=== PATIENT | male | born 1980 ===

== ENCOUNTER 2017-07-21 04:12 | Inpatient (IN) | payer MEDICAID ==
--- NOTE | 2017-07-21 04:43 | C.PDOC ---
History Of Present Illness Patient PIETER from home for evaluation. As per EMS, roommate called EMS because he was agitated and difficult to control. He arrives in ED yelling and appears to be under influence of drugs. Time Seen by Provider: 07/21/17 04:14 Chief Complaint (Nursing): Medical Clearance History Per: EMS History/Exam Limitations: clinical condition Onset/Duration Of Symptoms: Unknown Past Medical History Reviewed: Historical Data, Nursing Documentation, Vital Signs Vital Signs: Last Vital Signs Temp 98.1 F 07/21/17 04:19 Pulse 86 07/21/17 06:33 Resp 17 07/21/17 06:33 BP 153/130 H 07/21/17 06:33 Pulse Ox 98 07/21/17 06:51 - Medical History Other PMH: unknown Surgical History: Back Surgery Family History: States: Unknown Family Hx - Social History Hx Alcohol Use: Yes Hx Substance Use: Yes Review Of Systems Review Of Systems: ROS cannot be obtained secondary to pt's inabilty to answer questions. Physical Exam - Physical Exam Appears: Non-toxic, Unkempt, Other (awake, agitated, grunting and yelling periodically ) Skin: Normal Color, Warm, Dry, Other (no diaphoresis) Eye(s): bilateral: Other (approx 5mm and reactive, occasional vertical nystagmus ) Oral Mucosa: Moist Cardiovascular: Rhythm Regular Respiratory: Normal Breath Sounds, No Rales, No Rhonchi, No Wheezing Gastrointestinal/Abdominal: Normal Exam, Bowel Sounds, Soft, No Tenderness Neurological/Psych: Other (occasional clenching/tensing of muscles ) ED Course And Treatment - Laboratory Results Result Diagrams: 07/21/17 06:21 07/21/17 06:21 O2 Sat by Pulse Oximetry: 98 (RA) Pulse Ox Interpretation: Normal Progress Note: UA, UDS, accucheck ordered and reviewed. IM Ativan 2mg given. 5 :50am- Patient's roommate called ED, states patient is addicted to Pecocet, takes Lyrica and dextromethorphan tabs (8 tabs at a time). He is unsure if patient has psychiatric history or not. Recently patient has been having "bad trips" where he is agitated and screaming, causing neighbors to complaint. UDS (+) only for opiates and marijuana. Blood work and CT head ordered. 6:05- Haldol 5mg IM given. Patient agitated, on all fours on stretcher, clenching his leg and butt muscles, clenching his jaw. Code geno called and patient placed in 4 point restraints. 6:35- IV access obtained, patient given IV Benadryl 50mg - for possible dystonia. IV NS bolus ordered. Disposition - Disposition Referrals: Non [facility] Provider, [Primary Care Provider] - Disposition Time: 07:00 Condition: STABLE Forms: [employer] (Turkmen) - Clinical Impression Clinical Impression: Agitation, Substance abuse Physician Patient Turnover Patient Signed Over To: Jorge Vance Handoff Comments: pending CT head, CK, EKG
[2017-07-21 05:27] LABS: SQUAMOUS EPITHIAL < 1 /hpf (0-5); URINE BILIRUBIN NEGATIVE (NEGATIVE); URINE BLOOD NEGATIVE (NEGATIVE); URINE CLARITY Clear (Clear); URINE COLOR Straw (YELLOW); URINE GLUCOSE (UA) NORMAL (Normal); URINE LEUKOCYTE ESTERASE NEG Leu/uL (Negative); URINE NITRATE NEGATIVE (NEGATIVE); URINE PROTEIN NEGATIVE (NEGATIVE); URINE UROBILINOGEN NORMAL mg/dL (0.2-1.0)
[2017-07-21 05:37] LABS: BARBITURATES, UR NEGATIVE (NEGATIVE); BENZODIAZEPINES, UR NEGATIVE (NEGATIVE); PHENCYCLIDINE, UR NEGATIVE (NEGATIVE)
[2017-07-21 05:46] LABS: OPIATES, UR POSITIVE (NEGATIVE)
[2017-07-21 06:26] LABS: BASO # 0.3 K/uL (0.0-0.2); BASO % 1.6 % (0.0-2.0); EOS % 0.1 % (0.0-4.0); HEMOGLOBIN 15.5 g/dL (12.0-18.0); LYMPH % 10.6 % (20.0-40.0); MEAN CORPUSCULAR HEMOGLOBIN 31.9 pg (27.0-31.0); MEAN CORPUSCULAR HGB CONC 33.6 g/dL (33.0-37.0); MEAN PLATELET VOLUME 9.7 fL (7.2-11.7); MONO # 0.7 K/uL (0.0-0.8); MONO % 3.8 % (0.0-10.0); NEUT % 83.9 % (50.0-75.0); RBC 4.85 Mil/uL (4.40-5.90); RED CELL DISTRIBUTION WIDTH 13.2 % (11.5-14.5); WHITE BLOOD COUNT 19.1 K/uL (4.8-10.8)
[2017-07-21] MEDS ORDERED: DiphenhydrAMINE 50 mg/ml Inj ONE (06:39)
[2017-07-21 06:40] LABS: ALB/GLOB RATIO 1.1 (1.0-2.1); ALBUMIN 4.7 g/dL (3.5-5.0); ALT/SGPT 59 U/L (21-72); AST/SGOT 46 U/L (17-59); BLOOD UREA NITROGEN 14 mg/dL (9-20); CALCIUM 9.9 mg/dl (8.6-10.4); GFR AFRICAN-AMERICAN > 60; GFR NON-AFRICAN AMERICAN > 60
[2017-07-21] MEDS ORDERED: Sodium Chloride 0.9% 1,000 ML IV ONE (06:44)
[2017-07-21] MEDS ORDERED: DiphenhydrAMINE 50 mg/ml Inj IVP STA (06:44)
[2017-07-21] MEDS ORDERED: Sodium Chloride 0.9% 1,000 ML ONE (06:47)
[2017-07-21 07:41] LABS: SALICYLATE < 1.0 mg/dL 1
[2017-07-21 07:46] LABS: ACETAMINOPHEN < 10.0 ug/mL (10.0-30.0)
--- NOTE | 2017-07-21 08:31 | CT ---
PROCEDURE: CT HEAD WITHOUT CONTRAST. HISTORY: bizarre behavior, AMS COMPARISON: None available. TECHNIQUE: Axial computed tomography images were obtained through the head/brain without intravenous contrast. Radiation dose: Total exam DLP = 1012.8 mGy-cm. This CT exam was performed using one or more of the following dose reduction techniques: Automated exposure control, adjustment of the mA and/or kV according to patient size, and/or use of iterative reconstruction technique. FINDINGS: HEMORRHAGE: No intracranial hemorrhage. BRAIN: No mass effect or edema. No atrophy or chronic microvascular ischemic changes. Low-lying cerebellar tonsils. VENTRICLES: Unremarkable. No hydrocephalus. CALVARIUM: Prior right frontal craniotomy. PARANASAL SINUSES: Unremarkable as visualized. No significant inflammatory changes. MASTOID AIR CELLS: Unremarkable as visualized. No inflammatory changes. OTHER FINDINGS: None. IMPRESSION: No acute intracranial pathology. Low-lying cerebellar tonsils.
--- NOTE | 2017-07-21 08:42 | RAD ---
HISTORY: confusion COMPARISON: No prior. FINDINGS: LUNGS: No active pulmonary disease. PLEURA: No significant pleural effusion identified, no pneumothorax apparent. CARDIOVASCULAR: Normal. OSSEOUS STRUCTURES: No significant abnormalities. VISUALIZED UPPER ABDOMEN: Normal. OTHER FINDINGS: None. IMPRESSION: Limited evaluation due to patient rotation. No active disease.
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
[2017-07-21] MEDS ORDERED: Sodium Chloride 0.9% 1,000 ML IV SCH (11:45)
--- NOTE | 2017-07-21 12:29 | RAD ---
PROCEDURE: CHEST RADIOGRAPH, 1 VIEW HISTORY: aspiration, black stuff in mouth COMPARISON: Chest radiograph performed approximately 4 hours prior. FINDINGS: LUNGS: Low lung volumes. Clear. PLEURA: No pneumothorax or pleural fluid seen. CARDIOVASCULAR: Normal. OSSEOUS STRUCTURES: No significant abnormalities. VISUALIZED UPPER ABDOMEN: Normal. OTHER FINDINGS: None. IMPRESSION: No active disease.
--- NOTE | 2017-07-21 12:31 | RAD ---
PROCEDURE: Radiographs of the Lumbar Spine. HISTORY: prior back sx and abscess COMPARISON: No prior. FINDINGS: BONES: Normal alignment. No listhesis. No fracture. DISC SPACES: Unremarkable. OTHER FINDINGS: None. IMPRESSION: Unremarkable radiographs of the lumbar spine.
--- NOTE | 2017-07-21 13:16 | CP.PCM.CON ---
History of Present Illness - History of Present Illness History of Present Illness: 37 y/o male with pmx of polysubstance abuse admitted to [facility] [place] after neighbor complained patient was having verbal outburst and was found agitated. Patient stated he smoked marijuana and takes percocet, lyrica and morphine ER from Dr. Ramos (clinic in [place]). Patient was given ativan in Er. Patient was AAO x3, able to move all 4 extremitites. Provided detailed history. Patient denies any chest pain, denie any abdominal pain, denies any headaches, denies any nausea/vomitting. Review of Systems - Constitutional Constitutional: As Per HPI - EENT Eyes: As Per HPI - Cardiovascular Cardiovascular: As Per HPI - Respiratory Respiratory: As Per HPI - Gastrointestinal Gastrointestinal: As Per HPI - Genitourinary Genitourinary: As Per HPI Past Patient History - Infectious Disease Hx of Infectious Diseases: None - Past Medical History & Family History Past Medical History?: Yes Past Family History: Reviewed and not pertinent - Past Social History Smoking Status: Current Some Days Smoker Chewing Tobacco Use: No Cigar Use: No Alcohol: > 2 Drinks/Day Drugs: Cannabis, Opiates Home Situation {Lives}: Other (pt unable to provide full details of living situation. ) - PSYCHIATRIC Hx Substance Use: Yes - ANESTHESIA Hx Anesthesia: Yes Meds Allergies/Adverse Reactions: Allergies Allergy/AdvReac Type Severity Reaction Status Date / Time No Known Allergies Allergy Unverified 07/21/17 09:40 - Medications Medications: Current Medications Lactated Ringer's (Lactated Ringer's) 1,000 mls @ 100 mls/hr IV .Q10H [facility] Pantoprazole Sodium (Protonix Inj) 40 mg IVP DAILY [facility] Physical Exam - Head Exam Head Exam: ATRAUMATIC, NORMAL INSPECTION, NORMOCEPHALIC - Eye Exam Eye Exam: EOMI, Normal appearance - ENT Exam Additional comments: mouth.lips dry - Neck Exam Neck exam: Positive for: Full Rom - Respiratory Exam Respiratory Exam: Clear to Auscultation Bilateral, NORMAL BREATHING PATTERN - Cardiovascular Exam Cardiovascular Exam: REGULAR RHYTHM, +S1, +S2 - GI/Abdominal Exam GI & Abdominal Exam: Normal Bowel Sounds - Exam External exam: NORMAL EXTERNAL EXAM - Back Exam Additional comments: long 13 inch healed scar Results - Vital Signs Recent Vital Signs: Last Vital Signs Temp 98.9 F 07/21/17 07:30 Pulse 76 07/21/17 08:29 Resp 16 07/21/17 08:29 BP 146/99 H 07/21/17 08:29 Pulse Ox 96 07/21/17 08:29 - Labs Result Diagrams: 07/21/17 06:21 07/21/17 06:21 Labs: Laboratory Results - last 24 hr 07/21/17 07/21/17 07/21/17 04:34 05:18 05:18 WBC RBC Hgb Hct MCV MCH MCHC RDW Plt Count MPV Neut % (Auto) Lymph % (Auto) [place] % (Auto) Eos % (Auto) Baso % (Auto) Neut # (Auto) Lymph # (Auto) [place] # (Auto) Eos # (Auto) Baso # (Auto) Sodium Potassium Chloride Carbon Dioxide Anion Gap BUN Creatinine Est GFR ( Amer) Est GFR (Non-Af Amer) POC Glucose (mg/dL) 88 Random Glucose Calcium Total Bilirubin AST ALT Alkaline Phosphatase Ammonia Total Creatine Kinase Total Protein Albumin Globulin Albumin/Globulin Ratio Procalcitonin TSH 3rd Generation Urine Color Straw Urine Clarity Clear Urine pH 5.0 Ur Specific [place] 1.010 Urine Protein Negative Urine Glucose (UA) Normal Urine Ketones Negative Urine Blood Negative Urine Nitrate Negative Urine Bilirubin Negative Urine Urobilinogen Normal Ur Leukocyte Esterase Neg Urine WBC (Auto) < 1 Urine RBC (Auto) < 1 Ur Squamous Epith Cells < 1 Salicylates Urine Opiates Screen Positive H Urine Methadone Screen Negative Acetaminophen Ur Barbiturates Screen Negative Ur Phencyclidine Scrn Negative Ur Amphetamines Screen Negative U Benzodiazepines Scrn Negative U Oth Cocaine Metabols Negative U Cannabinoids Screen Positive H Alcohol, Quantitative 07/21/17 07/21/17 07/21/17 06:21 06:21 07:23 WBC 19.1 H RBC 4.85 Hgb 15.5 Hct 46.1 MCV 95.0 H MCH 31.9 H MCHC 33.6 RDW 13.2 Plt Count 273 MPV 9.7 Neut % (Auto) 83.9 H Lymph % (Auto) 10.6 L [place] % (Auto) 3.8 Eos % (Auto) 0.1 Baso % (Auto) 1.6 Neut # (Auto) 16.0 H Lymph # (Auto) 2.0 [place] # (Auto) 0.7 Eos # (Auto) 0.0 Baso # (Auto) 0.3 H Sodium 145 Potassium 4.4 Chloride 104 Carbon Dioxide 26 Anion Gap 20 BUN 14 Creatinine 1.1 Est GFR ( Amer) > 60 Est GFR (Non-Af Amer) > 60 POC Glucose (mg/dL) Random Glucose 92 Calcium 9.9 Total Bilirubin 1.0 AST 46 ALT 59 Alkaline Phosphatase 125 Ammonia Total Creatine Kinase 606 H Total Protein 9.2 H Albumin 4.7 Globulin 4.5 H Albumin/Globulin Ratio 1.1 Procalcitonin TSH 3rd Generation Urine Color Urine Clarity Urine pH Ur Specific [place] Urine Protein Urine Glucose (UA) Urine Ketones Urine Blood Urine Nitrate Urine Bilirubin Urine Urobilinogen Ur Leukocyte Esterase Urine WBC (Auto) Urine RBC (Auto) Ur Squamous Epith Cells Salicylates < 1.0 Urine Opiates Screen Urine Methadone Screen Acetaminophen < 10.0 L Ur Barbiturates Screen Ur Phencyclidine Scrn Ur Amphetamines Screen U Benzodiazepines Scrn U Oth Cocaine Metabols U Cannabinoids Screen Alcohol, Quantitative < 10 07/21/17 07/21/17 07/21/17 10:15 10:15 10:15 WBC RBC Hgb Hct MCV MCH MCHC RDW Plt Count MPV Neut % (Auto) Lymph % (Auto) [place] % (Auto) Eos % (Auto) Baso % (Auto) Neut # (Auto) Lymph # (Auto) [place] # (Auto) Eos # (Auto) Baso # (Auto) Sodium Potassium Chloride Carbon Dioxide Anion Gap BUN Creatinine Est GFR ( Amer) Est GFR (Non-Af Amer) POC Glucose (mg/dL) Random Glucose Calcium Total Bilirubin AST ALT Alkaline Phosphatase Ammonia 14 Total Creatine Kinase Total Protein Albumin Globulin Albumin/Globulin Ratio Procalcitonin < 0.05 L TSH 3rd Generation 2.73 Urine Color Urine Clarity Urine pH Ur Specific [place] Urine Protein Urine Glucose (UA) Urine Ketones Urine Blood Urine Nitrate Urine Bilirubin Urine Urobilinogen Ur Leukocyte Esterase Urine WBC (Auto) Urine RBC (Auto) Ur Squamous Epith Cells Salicylates Urine Opiates Screen Urine Methadone Screen Acetaminophen Ur Barbiturates Screen Ur Phencyclidine Scrn Ur Amphetamines Screen U Benzodiazepines Scrn U Oth Cocaine Metabols U Cannabinoids Screen Alcohol, Quantitative Assessment & Plan - Assessment and Plan (Free Text) Assessment: Youg patient taking percocet post back surgery. -POlysubstance abuse: Patient advised to stop marijuana use as it can interact with his class II meds and lead to psychosis. -Back Pain: suspect opoid dependent, restart 15 mg ER morphine q12hrs -restart lyrica 300mg q12hrs -Leukocytosis: suspect aspiration, continue empriical zosyn, mercer culture, serial lactic -rhabdo: low level, continue LR at 100 ml/hr -I stop reference #[id number] -Patient denied that he took any sough syrup. -please check tylenol level -check oxycodone urine -continue 1:1 observation -obtain psych eval Patient remains hemodynamically stable., Please call ICU if patient's clinical status worsens. - Date & Time Date: 07/21/17 Time: 13:21
[2017-07-21] MEDS: Lactated Ringer's 1,000 ML IV SCH ×3 (13:44→22:43)
[2017-07-21 13:52] LABS: BASO # 0.1 K/uL (0.0-0.2); BASO % 0.6 % (0.0-2.0); EOS # 0.1 K/uL (0.0-0.7); EOS % 0.7 % (0.0-4.0); HEMOGLOBIN 14.5 g/dL (12.0-18.0); LYMPH # 2.8 K/uL (1.0-4.3); LYMPH % 24.1 % (20.0-40.0); MEAN CORPUSCULAR HEMOGLOBIN 31.8 pg (27.0-31.0); MEAN CORPUSCULAR HGB CONC 33.5 g/dL (33.0-37.0); MEAN PLATELET VOLUME 9.5 fL (7.2-11.7); MONO # 1.1 K/uL (0.0-0.8); MONO % 9.3 % (0.0-10.0); NEUT # 7.7 K/uL (1.8-7.0); NEUT % 65.3 % (50.0-75.0); RBC 4.55 Mil/uL (4.40-5.90); RED CELL DISTRIBUTION WIDTH 13.2 % (11.5-14.5); WHITE BLOOD COUNT 11.8 K/uL (4.8-10.8)
[2017-07-21 15:19] LABS: SQUAMOUS EPITHIAL 5 /hpf (0-5); URINE BACTERIA OCC (<OCC); URINE BILIRUBIN NEGATIVE (NEGATIVE); URINE BLOOD NEGATIVE (NEGATIVE); URINE CLARITY Clear (Clear); URINE GLUCOSE (UA) NORMAL (Normal); URINE LEUKOCYTE ESTERASE 3+ Leu/uL (Negative); URINE NITRATE NEGATIVE (NEGATIVE); URINE PROTEIN NEGATIVE (NEGATIVE); URINE UROBILINOGEN NORMAL mg/dL (0.2-1.0)
[2017-07-21 15:20] LABS: URINE COLOR YELLOW (YELLOW)
[2017-07-21] MEDS: Morphine 15 mg SR Tab PO SCH ×2 (15:27→21:48)
[2017-07-21] MEDS: Piperacillin/Tazobact 3.375 GM in Sodium Chloride 0.9% 100 ML IVPB SCH ×2 (15:35→20:21)
--- NOTE | 2017-07-21 17:09 | CP.PCM.CON ---
History of Present Illness - History of Present Illness History of Present Illness: Mr. Nash is a 37-year-old man with a past medical history of hypertension, and a previous history of spinal abscess that was treated two years ago, who states that he has also had febrile seizure as a child, and does not know why he is in the hospital. He said he is confused about why he is here. The last thing he remembers is the police coming to his house and bringing him to the ED. He did not have any tongue biting, urinary incontinence, or bowel incontinence. He did not hit his head and denied any injury. Labs showed leukocytosis and urine was positive for opiates and cannabis. CT scan of the head was normal. Review of Systems - Review of Systems All systems: reviewed and no additional remarkable complaints except Past Patient History - Infectious Disease Hx of Infectious Diseases: None - Past Medical History & Family History Past Medical History?: Yes Past Family History: Reviewed and not pertinent - Past Social History Smoking Status: Current Some Days Smoker Chewing Tobacco Use: No Cigar Use: No Alcohol: > 2 Drinks/Day Drugs: Cannabis, Opiates Home Situation {Lives}: Other (pt unable to provide full details of living situation. ) - PSYCHIATRIC Hx Substance Use: Yes - ANESTHESIA Hx Anesthesia: Yes Meds Allergies/Adverse Reactions: Allergies Allergy/AdvReac Type Severity Reaction Status Date / Time No Known Allergies Allergy Unverified 07/21/17 09:40 - Medications Medications: Current Medications Lactated Ringer's (Lactated Ringer's) 1,000 mls @ 100 mls/hr IV .Q10H [facility] Last Admin: 07/21/17 13:44 Dose: 100 mls/hr Piperacillin Sod/Tazobactam (Sod 3.375 gm/ Sodium Chloride) 100 mls @ 200 mls/ hr IVPB Q6H [facility] Last Admin: 07/21/17 15:35 Dose: 200 mls/hr Morphine Sulfate (Morphine Extended Release Tab) 15 mg PO Q12 [facility] Last Admin: 07/21/17 15:27 Dose: Not Given Pantoprazole Sodium (Protonix Inj) 40 mg IVP DAILY [facility] Pregabalin (Lyrica) 300 mg PO BID [facility] Physical Exam - Neurological Exam Neurological exam: Alert, CN II-XII Intact, Normal Gait, Oriented x3, Reflexes Normal Results - Vital Signs Recent Vital Signs: Last Vital Signs Temp 98.4 F 07/21/17 15:50 Pulse 79 07/21/17 15:50 Resp 20 07/21/17 15:50 BP 146/75 07/21/17 15:50 Pulse Ox 100 07/21/17 15:50 - Labs Result Diagrams: 07/21/17 13:43 07/21/17 06:21 Labs: Laboratory Results - last 24 hr 07/21/17 07/21/17 07/21/17 04:34 05:18 05:18 WBC RBC Hgb Hct MCV MCH MCHC RDW Plt Count MPV Neut % (Auto) Lymph % (Auto) [place] % (Auto) Eos % (Auto) Baso % (Auto) Neut # (Auto) Lymph # (Auto) [place] # (Auto) Eos # (Auto) Baso # (Auto) ESR Sodium Potassium Chloride Carbon Dioxide Anion Gap BUN Creatinine Est GFR ( Amer) Est GFR (Non-Af Amer) POC Glucose (mg/dL) 88 Random Glucose Calcium Total Bilirubin AST ALT Alkaline Phosphatase Ammonia Total Creatine Kinase C-React Prot High Sens Total Protein Albumin Globulin Albumin/Globulin Ratio Procalcitonin TSH 3rd Generation Urine Color Straw Urine Clarity Clear Urine pH 5.0 Ur Specific [place] 1.010 Urine Protein Negative Urine Glucose (UA) Normal Urine Ketones Negative Urine Blood Negative Urine Nitrate Negative Urine Bilirubin Negative Urine Urobilinogen Normal Ur Leukocyte Esterase Neg Urine WBC (Auto) < 1 Urine RBC (Auto) < 1 Ur Squamous Epith Cells < 1 Urine Bacteria Salicylates Urine Opiates Screen Positive H Urine Methadone Screen Negative Acetaminophen Ur Barbiturates Screen Negative Ur Phencyclidine Scrn Negative Ur Amphetamines Screen Negative U Benzodiazepines Scrn Negative U Oth Cocaine Metabols Negative U Cannabinoids Screen Positive H Alcohol, Quantitative 07/21/17 07/21/17 07/21/17 06:21 06:21 07:23 WBC 19.1 H RBC 4.85 Hgb 15.5 Hct 46.1 MCV 95.0 H MCH 31.9 H MCHC 33.6 RDW 13.2 Plt Count 273 MPV 9.7 Neut % (Auto) 83.9 H Lymph % (Auto) 10.6 L [place] % (Auto) 3.8 Eos % (Auto) 0.1 Baso % (Auto) 1.6 Neut # (Auto) 16.0 H Lymph # (Auto) 2.0 [place] # (Auto) 0.7 Eos # (Auto) 0.0 Baso # (Auto) 0.3 H ESR Sodium 145 Potassium 4.4 Chloride 104 Carbon Dioxide 26 Anion Gap 20 BUN 14 Creatinine 1.1 Est GFR ( Amer) > 60 Est GFR (Non-Af Amer) > 60 POC Glucose (mg/dL) Random Glucose 92 Calcium 9.9 Total Bilirubin 1.0 AST 46 ALT 59 Alkaline Phosphatase 125 Ammonia Total Creatine Kinase 606 H C-React Prot High Sens Total Protein 9.2 H Albumin 4.7 Globulin 4.5 H Albumin/Globulin Ratio 1.1 Procalcitonin TSH 3rd Generation Urine Color Urine Clarity Urine pH Ur Specific [place] Urine Protein Urine Glucose (UA) Urine Ketones Urine Blood Urine Nitrate Urine Bilirubin Urine Urobilinogen Ur Leukocyte Esterase Urine WBC (Auto) Urine RBC (Auto) Ur Squamous Epith Cells Urine Bacteria Salicylates < 1.0 Urine Opiates Screen Urine Methadone Screen Acetaminophen < 10.0 L Ur Barbiturates Screen Ur Phencyclidine Scrn Ur Amphetamines Screen U Benzodiazepines Scrn U Oth Cocaine Metabols U Cannabinoids Screen Alcohol, Quantitative < 10 07/21/17 07/21/17 07/21/17 10:15 10:15 10:15 WBC RBC Hgb Hct MCV MCH MCHC RDW Plt Count MPV Neut % (Auto) Lymph % (Auto) [place] % (Auto) Eos % (Auto) Baso % (Auto) Neut # (Auto) Lymph # (Auto) [place] # (Auto) Eos # (Auto) Baso # (Auto) ESR Sodium Potassium Chloride Carbon Dioxide Anion Gap BUN Creatinine Est GFR ( Amer) Est GFR (Non-Af Amer) POC Glucose (mg/dL) Random Glucose Calcium Total Bilirubin AST ALT Alkaline Phosphatase Ammonia 14 Total Creatine Kinase C-React Prot High Sens Total Protein Albumin Globulin Albumin/Globulin Ratio Procalcitonin < 0.05 L TSH 3rd Generation 2.73 Urine Color Urine Clarity Urine pH Ur Specific [place] Urine Protein Urine Glucose (UA) Urine Ketones Urine Blood Urine Nitrate Urine Bilirubin Urine Urobilinogen Ur Leukocyte Esterase Urine WBC (Auto) Urine RBC (Auto) Ur Squamous Epith Cells Urine Bacteria Salicylates Urine Opiates Screen Urine Methadone Screen Acetaminophen Ur Barbiturates Screen Ur Phencyclidine Scrn Ur Amphetamines Screen U Benzodiazepines Scrn U Oth Cocaine Metabols U Cannabinoids Screen Alcohol, Quantitative 0307/21/17 07/21/17 13:43 13:43 15:05 WBC 11.8 H RBC 4.55 Hgb 14.5 Hct 43.2 MCV 95.0 H MCH 31.8 H MCHC 33.5 RDW 13.2 Plt Count 234 MPV 9.5 Neut % (Auto) 65.3 Lymph % (Auto) 24.1 [place] % (Auto) 9.3 Eos % (Auto) 0.7 Baso % (Auto) 0.6 Neut # (Auto) 7.7 H Lymph # (Auto) 2.8 [place] # (Auto) 1.1 H Eos # (Auto) 0.1 Baso # (Auto) 0.1 ESR 13 Sodium Potassium Chloride Carbon Dioxide Anion Gap BUN Creatinine Est GFR ( Amer) Est GFR (Non-Af Amer) POC Glucose (mg/dL) Random Glucose Calcium Total Bilirubin AST ALT Alkaline Phosphatase Ammonia Total Creatine Kinase C-React Prot High Sens 3.14 H Total Protein Albumin Globulin Albumin/Globulin Ratio Procalcitonin TSH 3rd Generation Urine Color Yellow Urine Clarity Clear Urine pH 5.0 Ur Specific [place] 1.010 Urine Protein Negative Urine Glucose (UA) Normal Urine Ketones Trace Urine Blood Negative Urine Nitrate Negative Urine Bilirubin Negative Urine Urobilinogen Normal Ur Leukocyte Esterase 3+ H Urine WBC (Auto) 14 H Urine RBC (Auto) 1 Ur Squamous Epith Cells 5 Urine Bacteria Occ H Salicylates Urine Opiates Screen Urine Methadone Screen Acetaminophen Ur Barbiturates Screen Ur Phencyclidine Scrn Ur Amphetamines Screen U Benzodiazepines Scrn U Oth Cocaine Metabols U Cannabinoids Screen Alcohol, Quantitative Assessment & Plan (1) Mental status change Assessment and Plan: The patient may have had a seizure, but is not back to baseline. There were no reported convulsions and there is no other evidence of a recent seizure. He states that he had not eaten in a few days and was still taking all of his opiate medications. These may have contributed to his confusion. The patient may have an EEG and an MRI of the brain as an outpatient. His mental status and neurological exam are completely normal. No further recommendations at this time. I recommend treating the underlying medical problems. Please reconsult neurology if there are any other concerns. Thank you. Status: Resolved Priority: Medium
[2017-07-21 20:24] LABS: ABG ALLEN TEST P; ARTERIAL BLOOD GAS HCO3 9.8 mmol/L (21-28); ARTERIAL BLOOD GAS PCO2 8 mm/Hg (35-45); ARTERIAL BLOOD GAS PH 7.29 (7.35-7.45); ARTERIAL BLOOD GAS PO2 165 mm/Hg (80-100)
[2017-07-22] MEDS: Piperacillin/Tazobact 3.375 GM in Sodium Chloride 0.9% 100 ML IVPB SCH ×4 (02:44→20:38)
[2017-07-22] MEDS ORDERED: DiphenhydrAMINE 50 mg/ml Inj IVP STA (03:04)
--- NOTE | 2017-07-22 03:26 | CON ---
DATE: CARDIOLOGY CONSULTATION REQUESTING PHYSICIAN: Dr. Ding. HISTORY OF PRESENT ILLNESS: The patient is a 37-year-old male who has a history of epidural abscess in 2016, underwent surgical drainage which was followed by diminished sensation of both lower extremities. The patient was put in because of agitation. The patient remembers that police went to his apartment and took him from his apartment and put him into the hospital. The patient is taking multiple medications from a [facility] for low back pain. The patient is unaware of any prior cardiac history. SOCIAL HISTORY: The patient is smoker and drinker. 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 MEDICATIONS: The patient does not recall his home medications. He is currently in the hospital on Lactated Ringer's at 100 mL/hour, Lyrica 300 mg once a day, morphine sulfate 50 mg p.o. q. 12 hours, Zosyn 3.375 mg intravenously q. 6 hours, Protonix 40 mg intravenously once a day. PHYSICAL EXAMINATION: GENERAL: The patient is a middle-aged male, who does not appear to be in any distress. VITAL SIGNS: Blood pressure 146/75, heart rate 79, temperature 98.4. Earlier blood pressure was documented at 163/130. HEENT: Normocephalic. CHEST: Clear. HEART: S1 and S2 regular. EXTREMITIES: No edema. LABORATORY DATA: SMA-7 is entirely within normal limits. Total CPK is 606. TSH level is within normal limits. Hemoglobin and hematocrit are 14.5 and 43.2. White count 11.8, platelet count 134,000. Urinary screen is positive for and cannabinoids. EKG revealed normal sinus rhythm . Head CT scan, no acute intracranial findings. Lumbar spine x-ray is unremarkable. Chest x-ray: Poor inspiratory effort, otherwise unremarkable. ASSESSMENT: 1. Altered mental status and sedation on admission. At this time the patient is coherent and cooperative. 2. Cannabinoid abuse. 3. Slightly elevated total creatinine kinase. RECOMMENDATIONS: Continue current IV Zosyn. Admit the patient to Telemetry. Ordered an echocardiogram. The patient's initial hypertension is most likely related to his agitation and treatment will be considered as the patient remains hypertensive despite adequate tranquilizers. Kar Alfaro MD
[2017-07-22 07:53] LABS: BASO % 0.3 % (0.0-2.0); EOS # 0.1 K/uL (0.0-0.7); EOS % 1.2 % (0.0-4.0); HEMOGLOBIN 12.7 g/dL (12.0-18.0); LYMPH # 2.8 K/uL (1.0-4.3); LYMPH % 30.8 % (20.0-40.0); MEAN CELL VOLUME 94.5 fL (80.0-94.0); MEAN CORPUSCULAR HEMOGLOBIN 32.3 pg (27.0-31.0); MEAN CORPUSCULAR HGB CONC 34.2 g/dL (33.0-37.0); MEAN PLATELET VOLUME 10.1 fL (7.2-11.7); MONO # 1.1 K/uL (0.0-0.8); MONO % 12.4 % (0.0-10.0); NEUT % 55.3 % (50.0-75.0); RBC 3.95 Mil/uL (4.40-5.90); RED CELL DISTRIBUTION WIDTH 13.1 % (11.5-14.5)
[2017-07-22 08:22] LABS: ALB/GLOB RATIO 1.2 (1.0-2.1); ALBUMIN 3.5 g/dL (3.5-5.0); ALT/SGPT 40 U/L (21-72); AST/SGOT 28 U/L (17-59); BLOOD UREA NITROGEN 20 mg/dL (9-20); CALCIUM 8.4 mg/dl (8.6-10.4); GFR AFRICAN-AMERICAN > 60; GFR NON-AFRICAN AMERICAN > 60
[2017-07-22] MEDS: Morphine 15 mg SR Tab PO SCH ×2 (09:49→22:37)
[2017-07-22] MEDS ORDERED: oxyCODONE 5 mg Immediate Release Tab PO STA (10:12)
[2017-07-22] MEDS: Lactated Ringer's 1,000 ML IV SCH (10:30)
[2017-07-22] MEDS ORDERED: oxyCODONE 5 mg Immediate Release Tab PO ONE (14:15)
--- NOTE | 2017-07-22 14:50 | CP.PCM.PN ---
<Huey Iverson - Last Filed: 07/22/17 15:05> Subjective - Date & Time of Evaluation Date of Evaluation: 07/22/17 Time of Evaluation: 14:50 - Subjective Subjective: Medicine progress note. Pt seen and examined at bedside. No acute distress. Pt is fully lucid. Asking repeatedly for stronger doses of pain meds. Vacillating between staying and leaving AMA. No fevers, chills, vomiting, diarrhea. Pt does think he is feeling effects of opiate withdrawal. Objective - Vital Signs/Intake and Output Vital Signs (last 24 hours): Temp Pulse Resp BP Pulse Ox 98.1 F 78 18 154/98 H 98 07/22/17 07:45 07/22/17 07:45 07/22/17 07:45 07/22/17 07:45 07/22/17 07:45 Intake and Output: 07/22/17 07/22/17 06:59 18:59 Intake Total 2049 500 Balance 2049 500 - Medications Medications: Current Medications Amlodipine Besylate (Norvasc) 10 mg PO DAILY [facility] [place] Last Admin: 07/22/17 13:15 Dose: 10 mg Lactated Ringer's (Lactated Ringer's) 1,000 mls @ 100 mls/hr IV .Q10H [facility] [place] Last Admin: 07/22/17 10:30 Dose: 100 mls/hr Piperacillin Sod/Tazobactam (Sod 3.375 gm/ Sodium Chloride) 100 mls @ 200 mls/ hr IVPB Q6H [facility] [place] Last Admin: 07/22/17 13:58 Dose: 200 mls/hr Morphine Sulfate (Morphine Extended Release Tab) 15 mg PO Q12 [facility] Last Admin: 07/22/17 09:49 Dose: 15 mg Oxycodone/Acetaminophen (Percocet 5/325 Mg Tab) 2 tab PO Q4H PRN PRN Reason: Pain, severe (8-10) Stop: 07/25/17 17:01 Pantoprazole Sodium (Protonix Inj) 40 mg IVP DAILY [facility] [place] Last Admin: 07/22/17 09:50 Dose: 40 mg Pregabalin (Lyrica) 300 mg PO BID [facility] [place] Last Admin: 07/22/17 09:48 Dose: 300 mg - Labs Labs: 07/22/17 07:37 07/22/17 07:37 - Constitutional Appears: Non-toxic, No Acute Distress, Unkempt - Head Exam Head Exam: ATRAUMATIC, NORMAL INSPECTION, NORMOCEPHALIC - Eye Exam Eye Exam: EOMI - ENT Exam ENT Exam: Mucous Membranes Dry - Neck Exam Neck Exam: Full ROM, Normal Inspection - Respiratory Exam Respiratory Exam: NORMAL BREATHING PATTERN. absent: Respiratory Distress - Cardiovascular Exam Cardiovascular Exam: +S1, +S2 - GI/Abdominal Exam GI & Abdominal Exam: Soft, Normal Bowel Sounds. absent: Tenderness - Extremities Exam Extremities Exam: Full ROM, Normal Inspection - Neurological Exam Neurological Exam: Alert, Awake, Oriented x3 - Psychiatric Exam Psychiatric exam: Flat Affect - Skin Skin Exam: Dry, Intact, Normal Color, Warm Assessment and Plan - Assessment and Plan (Free Text) Assessment: This is a 37 yo male with past medical history of back abscess and substance abuse presenting with 1. Altered mental status -suspect may be secondary to drug use -pt is today fully lucid -urine drug screen pos for opiates and cannabis; however urine drug screen does not check for all substances -pt takes percocet and lyrica for prior back pain/sx -will order ABG to check for met acidosis>>> sample not drawn correctly. -NS 100 cc/hr -will call roommate to get more info -will check [employer] to confirm meds>> confirmed yesterday and added to note. -neurology consult. recs appreciated. -psych consult. recs appreciated. Dr. Iraheta. -procal negative -urine culture negative -HIV negative -procal negative -TSH normal. 2. Black powdery substance in mouth -will monitor CBC to rule out occult bleed -pt started on diet -stool occult blood -ER attending was not endorsed if pt received charcoal; could not explain substance. -substance according to patient was "shrooms" -denies any other drug use. 3. Prior back sx -will order lumbar sacral x ray>> normal x ray of lumbar spine. -will start pt on morphine ER -will continue pt on prior lyrica dose to avoid withdrawal 4. hx of HTN -will restart home norvasc 10 mg po daily -will restart home lopressor 25 mg po bid. 4. GI/DVT ppx -protonix -will hold any anticoagulation for now -scds discussed with Dr. Hess. <Borker,Katey V - Last Filed: 07/22/17 20:00> Objective - Vital Signs/Intake and Output Vital Signs (last 24 hours): Temp Pulse Resp BP Pulse Ox 98.1 F 74 20 158/99 H 98 07/22/17 15:30 07/22/17 15:30 07/22/17 15:30 07/22/17 17:36 07/22/17 15:30 Intake and Output: 07/22/17 07/23/17 18:59 06:59 Intake Total 1280 Balance 1280 - Medications Medications: Current Medications Amlodipine Besylate (Norvasc) 10 mg PO DAILY [facility] [place] Last Admin: 07/22/17 13:15 Dose: 10 mg Lactated Ringer's (Lactated Ringer's) 1,000 mls @ 100 mls/hr IV .Q10H [facility] [place] Last Admin: 07/22/17 10:30 Dose: 100 mls/hr Piperacillin Sod/Tazobactam (Sod 3.375 gm/ Sodium Chloride) 100 mls @ 200 mls/ hr IVPB Q6H [facility] [place] Last Admin: 07/22/17 13:58 Dose: 200 mls/hr Metoprolol Tartrate (Lopressor) 25 mg PO BID [facility] [place] Last Admin: 07/22/17 17:36 Dose: 25 mg Morphine Sulfate (Morphine Extended Release Tab) 15 mg PO Q12 [facility] [place] Last Admin: 07/22/17 09:49 Dose: 15 mg Oxycodone/Acetaminophen (Percocet 5/325 Mg Tab) 2 tab PO Q4H PRN PRN Reason: Pain, severe (8-10) Stop: 07/25/17 17:01 Last Admin: 07/22/17 16:35 Dose: 2 tab Pantoprazole Sodium (Protonix Inj) 40 mg IVP DAILY [facility] [place] Last Admin: 07/22/17 09:50 Dose: 40 mg Pregabalin (Lyrica) 300 mg PO BID [facility] [place] Last Admin: 07/22/17 17:37 Dose: 300 mg - Labs Labs: 07/22/17 07:37 07/22/17 07:37 Attending/Attestation - Attestation I have personally seen and examined this patient.: Yes I have fully participated in the care of the patient.: Yes I have reviewed all pertinent clinical information, including history, physical exam and plan: Yes Notes (Text): Patient seen, examined and case discussed with medical research scientist. Patient seen this morning with resident, after he demanded to see a doctor and was threatening nursing staff. Patient upon evaluation this morning, able to say his name, date of , day of the week, and his roommate's full name. Patient is demanding his medication and reports that "no person has seen him". I have explained to that many doctors, residents, have seen him since yesterday since coming to the hospital including the critical care, cardiology, neurology , myself, resident and nursing staff. Patient admits he took "mushrooms" the night he became altered and out of character, he admits to using it before. Patient also requesting for information in relation to his drug use not be recorded in his record. I have also explained to the patient he has been restarted on his Lyrica and his Morphine ER dosage as confirmed by [employer] website but i have not started his immediate dose of oxycodone given I saw him while he was not fully awake and alert. I have restarted his immediate acting oxycodone and recheck his EKG which does not show acute changes from one on admission. I have discontinued telemetry. I will keep the 1:1 overnight given his aggressive behavior. I have been updated by nursing staff the entire day in regards to his need for the immediate acting oxycodone and I have restarted him on his Oxycodone 10mg PO Q6H PRN severe pain for this afternoon. I have offered his pastoral care support but he has declined it. Per psych, he is stable from their prespective and he is allowed to AMA if he wants. Patient has been threatening the entire day and the night before the wants to AMA. Assessment/Plan 1. Alerted Mental Status secondary to Polysubstance Abuse (TCA, narcotic, "mushrooms" Dextronorphan) * Procalcition: low, f/u blood cultures, f/u UA, urine culture * UDS: Positive for cannabis, opiates, negative for methadone, barbs, PCP, amphetamines, cocaine, Salciylates * pt takes percocet and lyrica for prior back pain/sx * confirmed by the [facility] monitoring system * restarted him on home regimen: lyrica, morphine ER, and oxycodone IM * Please follow-up with his PMD: Dr Tc Allen in regards to patient's recent admission * Follow-up CK tomorrow * ABG insufficient sample; recorded in nursing note * Start IV Fluids * Critical consult seen and evaluated on admission: stable for the floors * Psych consult seen and evaluated on admission: stable to be discharge and to AMA * CXR: No active disease * ESR: 13, CRP:3.14 TSH: within normal RPR, [id number], folate-pending, Ammonia : within normal * Cardiology and neurology have seen and evaluated patient: help appreciated * pending echocardiogram * Outpatient EEG and MRI; neurologically stable 2. Black powdery substance in mouth Aspiration pneumonia * Advanced diet * Aspiration precautions * CXR: No active disease * Zosyn 3.375 IV Q6H (active since 07/22/17) * ER attending was not endorsed if pt received charcoal; could not explain substance on admission * On ED triage, pt brought in by [facility]. as per ems,"pt has been living at friends house and they wanted pt out bc he has become too much" pt awake alert. pt answers questions when asked. pt has out burst of screaming and yelling. denies drinking. strong smell of ETOH. no s/s of sob, n/v/d, sarah 3. Prior back surgery, history of prior back abscess * LS xray: unremarkable * Restart Lyrica 300mg PO BID * Restart Morphine ER 15mg PO BID * Restart Percocet 10-325mg 2 tab PO Q4H * Regimen confirmed on [facility] monitoring system * Medications prescribed by Dr. Tc Allen, please follow-up with him in light of patient's drug use given interactions to his medications 4. GI/DVT ppx * protonix 40mg IV Q 12H * SCDs b/l * Patient risk is O. * 1:1 continue * d/c telemetry * LR 100cc/hr Disposition: Patient to be observed overnight on his pain regimen. Per psych, he is allowed to AMA. He keeps threatening to AMA the entire day. Patient is likely discharge in the morning. Pending echocardiogram.
--- NOTE | 2017-07-22 14:51 | PCM.PSYCH ---
Initial Psychiatric Evaluation - Initial Psychiatric Evaluation Type of Admission: Voluntary Legal Status: Capacity Current Medications: Active Medications Generic Name Dose Route Start Last Admin Trade Name Freq PRN Reason Stop Dose Admin Amlodipine Besylate 10 mg 07/22/17 12:45 07/22/17 13:15 Norvasc PO 10 mg DAILY [facility] Administration Lactated Ringer's 1,000 mls @ 100 mls/hr 07/21/17 13:00 07/22/17 10:30 Lactated Ringer's IV 100 mls/hr .Q10H [facility] Administration Piperacillin Sod/Tazobactam 100 mls @ 200 mls/hr 07/21/17 14:30 07/22/17 13: 58 Sod 3.375 gm/ Sodium Chloride IVPB 200 mls/hr Q6H [facility] Administration Morphine Sulfate 15 mg 07/21/17 13:15 07/22/17 09:49 Morphine Extended Release Tab PO 15 mg Q12 [facility] Administration Oxycodone/Acetaminophen 2 tab 07/22/17 17:00 Percocet 5/325 Mg Tab PO 07/25/17 17:01 Q4H PRN Pain, severe (8-10) Pantoprazole Sodium 40 mg 07/22/17 10:00 07/22/17 09:50 Protonix Inj IVP 40 mg DAILY [facility] Administration Pregabalin 300 mg 07/21/17 18:00 07/22/17 09:48 Lyrica PO 300 mg BID [facility] Administration Past Psychiatric History - Past Psychiatric History Previous Treatment History: None Pertinent Medical Hx (Current Medical&Sleep Prob, Allergies): Allergies Allergy/AdvReac Type Severity Reaction Status Date / Time No Known Allergies Allergy Unverified 07/21/17 09:40 Unobtainable 07/21/17 Review of Systems - Review of Systems All systems: reviewed and no additional remarkable complaints except - Psychiatric Psychiatric: Anxiety Mental Status Examination - Personal Presentation Personal Presentation: Looks stated age - Affect Affect: Constricted - Motor Activity Motor Activity: Calm - Reliability in Providing Information Reliability in Providing Information: Fair - Speech Speech: Organized - Mood Mood: Anxious - Formal Thought Process Formal Thought Process: No Impairment - Obsessions/Compulsions Obsessions: No Compulsions: No - Cognitive Functions Orientation: Person, Place, Situation, Time Sensorium: Alert Attention/Concentration: Attentive Abstract Thinking: [place] Estimate of Intelligence: Below average Judgement: Imparied, as evidence by: Poor judgement, Imparied, as evidence by: Lack of insight into illness - Risk Risk: Diminished functioning - Limitations Limitations: Living alone DSM 5 DX - Recommended/Plan of Treatment Treatment Recommendations and Plan of Treatment: pt psychiatrically cleared and stable for discharge.
--- NOTE | 2017-07-22 15:26 | PN ---
SUBJECTIVE: The patient denies chest pain and cough has improved. PHYSICAL EXAMINATION: VITAL SIGNS: Blood pressure 154/98, heart rate 78, temperature is 98.1. HEENT: Normocephalic. CHEST: Clear. HEART: S1 and S2 regular. EXTREMITIES: No edema. LABORATORIES: Today's SMA-7 is within normal limits except for glucose of 114. Today's hemoglobin, hematocrit, white counts and platelet counts are within normal limits. ASSESSMENT: 1. Altered mental status. 2. Uncontrolled hypertension. 3. Chronic low back pain. RECOMMENDATIONS: Start Norvasc at 10 mg orally once a day. Continue current IV Zosyn. Awaiting echocardiogram to be performed tomorrow. Kar Alfaro MD
[2017-07-22] MEDS: Oxycodone/Acetaminophen 5/325 mg Tab PO PRN ×2 (16:35→20:47)
[2017-07-23] MEDS: Piperacillin/Tazobact 3.375 GM in Sodium Chloride 0.9% 100 ML IVPB SCH ×3 (03:00→14:22)
[2017-07-23] MEDS: Oxycodone/Acetaminophen 5/325 mg Tab PO PRN ×3 (03:29→14:21)
[2017-07-23 08:26] LABS: BASO % 0.3 % (0.0-2.0); EOS # 0.1 K/uL (0.0-0.7); EOS % 2.7 % (0.0-4.0); HEMOGLOBIN 13.3 g/dL (12.0-18.0); LYMPH # 2.8 K/uL (1.0-4.3); MEAN CELL VOLUME 94.8 fL (80.0-94.0); MEAN CORPUSCULAR HEMOGLOBIN 32.3 pg (27.0-31.0); MONO # 0.7 K/uL (0.0-0.8); NEUT # 1.9 K/uL (1.8-7.0); RBC 4.12 Mil/uL (4.40-5.90); WHITE BLOOD COUNT 5.5 K/uL (4.8-10.8)
[2017-07-23 08:53] LABS: ALB/GLOB RATIO 1.4 (1.0-2.1); ALBUMIN 3.8 g/dL (3.5-5.0); ALT/SGPT 45 U/L (21-72); AST/SGOT 34 U/L (17-59); BLOOD UREA NITROGEN 12 mg/dL (9-20); CALCIUM 8.7 mg/dl (8.6-10.4); GFR AFRICAN-AMERICAN > 60; GFR NON-AFRICAN AMERICAN > 60
[2017-07-23] MEDS: Morphine 15 mg SR Tab PO SCH (10:29)
--- NOTE | 2017-07-23 15:33 | CP.PCM.DIS ---
Provider - Provider Date of Admission: 07/21/17 09:13 Attending physician: Katey Hess DO Primary care physician: Non [facility] Provider Time Spent in preparation of Discharge (in minutes): 30 Hospital Course - Lab Results Lab Results: Micro Results 07/21/17 10:00 Blood Blood Culture - Preliminary NO GROWTH AFTER 24 HOURS 07/21/17 09:30 Blood Blood Culture - Preliminary NO GROWTH AFTER 24 HOURS 07/21/17 Unknown Urine Urine Culture - Final No Growth (<1,000 CFU/ML) Most Recent Lab Values WBC 5.5 K/uL (4.8-10.8) 07/23/17 08:16 RBC 4.12 Mil/uL (4.40-5.90) L 07/23/17 08:16 Hgb 13.3 g/dL (12.0-18.0) 07/23/17 08:16 Hct 39.1 % (35.0-51.0) 07/23/17 08:16 MCV 94.8 fL (80.0-94.0) H 07/23/17 08:16 MCH 32.3 pg (27.0-31.0) H 07/23/17 08:16 MCHC 34.0 g/dL (33.0-37.0) 07/23/17 08:16 RDW 13.0 % (11.5-14.5) 07/23/17 08:16 Plt Count 194 K/uL (130-400) 07/23/17 08:16 MPV 10.0 fL (7.2-11.7) 07/23/17 08:16 Neut % (Auto) 34.0 % (50.0-75.0) L 07/23/17 08:16 Lymph % (Auto) 51.0 % (20.0-40.0) H 07/23/17 08:16 [place] % (Auto) 12.0 % (0.0-10.0) H 07/23/17 08:16 Eos % (Auto) 2.7 % (0.0-4.0) 07/23/17 08:16 Baso % (Auto) 0.3 % (0.0-2.0) 07/23/17 08:16 Neut # (Auto) 1.9 K/uL (1.8-7.0) 07/23/17 08:16 Lymph # (Auto) 2.8 K/uL (1.0-4.3) 07/23/17 08:16 [place] # (Auto) 0.7 K/uL (0.0-0.8) 07/23/17 08:16 Eos # (Auto) 0.1 K/uL (0.0-0.7) 07/23/17 08:16 Baso # (Auto) 0.0 K/uL (0.0-0.2) 07/23/17 08:16 ESR 13 mm/hr (0-15) 07/21/17 13:43 Puncture Site Lr 07/21/17 20:15 pCO2 8 mm/Hg (35-45) L* 07/21/17 20:15 pO2 165 mm/Hg (80-100) H 07/21/17 20:15 HCO3 9.8 mmol/L (21-28) L* 07/21/17 20:15 ABG pH 7.29 (7.35-7.45) L 07/21/17 20:15 ABG Total CO2 4.0 mmol/L (22-28) L 07/21/17 20:15 ABG Base Excess -19.4 mmol/L (-2.0-3.0) L 07/21/17 20:15 John Test P 07/21/17 20:15 ABG Potassium 0.2 mmol/L (3.6-5.2) L* 07/21/17 20:15 Sodium 163.0 mmol/l (132-148) H* 07/21/17 20:15 Chloride 145.0 mmol/L (98-107) H 07/21/17 20:15 Glucose 14 mg/dl (75-110) L* 07/21/17 20:15 Lactate 0.5 mmol/L (0.7-2.1) L 07/21/17 20:15 Liter Flow 21.0 07/21/17 20:15 Crit Value Called To Dr kang 07/21/17 20:15 Crit Value Called By [email or web address] 07/21/17 20:15 Crit Value Read Back Y 07/21/17 20:15 Blood Gas Notified Time 202207/21/17 20:15 Sodium 142 mmol/L (132-148) 07/23/17 08:16 Potassium 4.5 mmol/L (3.6-5.2) 07/23/17 08:16 Chloride 103 mmol/L (98-107) 07/23/17 08:16 Carbon Dioxide 29 mmol/L (22-30) 07/23/17 08:16 Anion Gap 14 (10-20) 07/23/17 08:16 BUN 12 mg/dL (9-20) 07/23/17 08:16 Creatinine 0.9 mg/dL (0.8-1.5) 07/23/17 08:16 Est GFR ( Amer) > 60 07/23/17 08:16 Est GFR (Non-Af Amer) > 60 07/23/17 08:16 POC Glucose (mg/dL) 88 mg/dL (65-110) 07/21/17 04:34 Random Glucose 98 mg/dL (75-110) 07/23/17 08:16 Calcium 8.7 mg/dl (8.6-10.4) 07/23/17 08:16 Total Bilirubin 0.5 mg/dL (0.2-1.3) 07/23/17 08:16 AST 34 U/L (17-59) 07/23/17 08:16 ALT 45 U/L (21-72) 07/23/17 08:16 Alkaline Phosphatase 87 U/L (38-126) 07/23/17 08:16 Ammonia 14 umol/L (9-33) 07/21/17 10:15 Total Creatine Kinase 225 U/L (55-170) H 07/23/17 08:16 C-React Prot High Sens 3.14 mg/L (1.00-3.00) H 07/21/17 13:43 Total Protein 6.5 g/dL (6.3-8.3) 07/23/17 08:16 Albumin 3.8 g/dL (3.5-5.0) 07/23/17 08:16 Globulin 2.7 gm/dL (2.2-3.9) 07/23/17 08:16 Albumin/Globulin Ratio 1.4 (1.0-2.1) 07/23/17 08:16 Procalcitonin < 0.05 NG/ML (0.19-0.49) L 07/21/17 10:15 TSH 3rd Generation 2.73 mIU/L (0.46-4.68) 07/21/17 10:15 Arterial Blood Potassium 0.2 mmol/L (3.6-5.2) L* 07/21/17 20:15 Urine Color Yellow (YELLOW) 07/21/17 15:05 Urine Clarity Clear (Clear) 07/21/17 15:05 Urine pH 5.0 (5.0-8.0) 07/21/17 15:05 Ur Specific [place] 1.010 (1.003-1.030) 07/21/17 15:05 Urine Protein Negative mg/dL (NEGATIVE) 07/21/17 15:05 Urine Glucose (UA) Normal mg/dL (Normal) 07/21/17 15:05 Urine Ketones Trace mg/dL (NEGATIVE) 07/21/17 15:05 Urine Blood Negative (NEGATIVE) 07/21/17 15:05 Urine Nitrate Negative (NEGATIVE) 07/21/17 15:05 Urine Bilirubin Negative (NEGATIVE) 07/21/17 15:05 Urine Urobilinogen Normal mg/dL (0.2-1.0) 07/21/17 15:05 Ur Leukocyte Esterase 3+ Kathie/uL (Negative) H 07/21/17 15:05 Urine WBC (Auto) 14 /hpf (0-5) H 07/21/17 15:05 Urine RBC (Auto) 1 /hpf (0-3) 07/21/17 15:05 Ur Squamous Epith Cells 5 /hpf (0-5) 07/21/17 15:05 Urine Bacteria Occ (<OCC) H 07/21/17 15:05 Salicylates < 1.0 mg/dL 1 07/21/17 07:23 Urine Opiates Screen Positive (NEGATIVE) H 07/21/17 05:18 Urine Methadone Screen Negative (NEGATIVE) 07/21/17 05:18 Acetaminophen < 10.0 ug/mL (10.0-30.0) L 07/21/17 07:23 Ur Barbiturates Screen Negative (NEGATIVE) 07/21/17 05:18 Ur Phencyclidine Scrn Negative (NEGATIVE) 07/21/17 05:18 Ur Amphetamines Screen Negative (NEGATIVE) 07/21/17 05:18 U Benzodiazepines Scrn Negative (NEGATIVE) 03/03/18 05:18 U Oth Cocaine Metabols Negative (NEGATIVE) 07/21/17 05:18 U Cannabinoids Screen Positive (NEGATIVE) H 07/21/17 05:18 Alcohol, Quantitative < 10 mg/dl (0-10) 07/21/17 06:21 HIV 1&2 Antibody Screen Negative (NEGATIVE) 07/21/17 13:43 - Hospital Course Hospital Course: As per admission documentation This is a 37 yo male with past medical history of back abscess, S/P lower back surgery, polysubstance abuse, presenting with altered mental status and agitation. Patient was brought in by ambulance accompanied by friend (room mate? ). Patient states he lives in [place] and was visiting a friend in [place] last night. He says he was just "hanging out" with his friend. He cannot provide details as to how he ended up in the emergency room. He reports previous back abscess and lower back surgery roughly 2 years ago at [facility] in [place]. He says his last drink was this past sunday and he had 2 beers. He denies injection drug use. He denies any psychiatric history. On examination, pt's lips, inside of mouth, and tongue are coated with black powdery substance. Patient cannot say what this substance is. Hospital course Patient was admitted to telemetry on 07/21/17 for Altered Mental Status. Psych consulted, Dr. Iraheta - polysubstance abuse. Neurology consulted, Dr. Srtong - NATE , polysubstance abuse. ICU consulted, Dr. Fritz Beltrán - unknown drug overdose. Urine drug screen was positive for opiates and cannabis; however urine drug screen does not check for all substances. Pt takes percocet and lyrica for prior back pain/sx. Patient returned to lucid state on 07/22. All other tests (ie blood/urine cultures, HIV) returned negative. Upon further questioning, patient stated that he took mushrooms. He still did not remember how he ended up in the hospital. He was monitored for another 24 hours. Patient was stable throughout his hospital course. Dr. Andre discussed the need for lifestyle changes as to avoid this situation again. Patient stated understands and agrees. Discussion included talks about getting a job some patient is no longer "bored" . He stated he understood that these actions were not healthy and he needs to make better decisions. On date of discharge, patient complained of mild positional vertigo. He stated he still wanted to go home. PT saw patient and cleared patient to go home. Discharge Instructions Patient is to be discharged home per Dr. Andre. Patient is to continue to take his medications as previously prescribed by his primary care physician. Patient is being given one new medication, Meclizine. It was stress to that patient that he needs to stop taking drugs and illicit material that are doing harm to him physically/mentally. Patient states he understands. Patient is to follow up with his primary care physician as needed. New Medication Meclizine 12.5 mg PO Q8H prn - disp #30 tabs. - Constitutional Appears: Non-toxic, No Acute Distress, Unkempt - Head Exam Head Exam: ATRAUMATIC, NORMAL INSPECTION, NORMOCEPHALIC - Eye Exam Eye Exam: EOMI - ENT Exam ENT Exam: Mucous Membranes Dry - Neck Exam Neck Exam: Full ROM, Normal Inspection - Respiratory Exam Respiratory Exam: NORMAL BREATHING PATTERN. absent: Respiratory Distress - Cardiovascular Exam Cardiovascular Exam: +S1, +S2 - GI/Abdominal Exam GI & Abdominal Exam: Soft, Normal Bowel Sounds. absent: Tenderness - Extremities Exam Extremities Exam: Full ROM, Normal Inspection - Neurological Exam Neurological Exam: Alert, Awake, Oriented x3 - Psychiatric Exam Psychiatric exam: Flat Affect - Skin Skin Exam: Dry, Intact, Normal Color, Warm Discharge Exam - Head Exam Head Exam: ATRAUMATIC, NORMAL INSPECTION, NORMOCEPHALIC Discharge Plan - Discharge Medications Prescriptions: Meclizine [Antivert] 12.5 mg PO Q8H PRN #30 tab PRN Reason: Dizziness - Follow Up Plan Condition: GOOD Disposition: HOME/ ROUTINE Instructions: Altered Mental Status (DC), Meclizine Additional Instructions: Patient is to be discharged home per Dr. Andre. Patient is to continue to take his medications as previously prescribed by his primary care physician. Patient is being given one new medication, Meclizine. It was stress to that patient that he needs to stop taking drugs and illicit material that are doing harm to him physically/mentally. Patient states he understands. Patient is to follow up with his primary care physician as needed. New Medication Meclizine 12.5 mg PO Q8H prn - disp #30 tabs. Referrals: Non [facility] Provider, [Primary Care Provider] -
[2017-07-23 16:39] VITALS: BP 141/80; PULSE 72; RESP 20; TEMP 98; O2SAT 99
--- NOTE | 2017-07-23 22:57 | CARD ---
APPROVED REPORT EKG Measurement Heart [id number] <Conclusion> Normal sinus rhythm Possible Left atrial enlargement Left ventricular hypertrophy Abnormal ECG
[2017-07-24] MEDS ORDERED: Influenza Vaccine 60 mcg/0.5 mL SYR (4YR UP) IM ONE (10:00)
--- NOTE | 2017-07-24 10:54 | CARD ---
APPROVED REPORT EXAM: Two-dimensional and M-mode echocardiogram with Doppler and color Doppler. Other Information Quality : [employer] : INDICATION URINE DRUG TEST (+) FOR MARJVANA RISK FACTORS Hypertension 2D DIMENSIONS IVSd1.0 (0.7-1.1cm)LVDd4.9 (3.9-5.9cm) PWd1.0 (0.7-1.1cm)LVDs3.0 (2.5-4.0cm) FS (%) 37.5 %LVEF (%)67.4 (>50%) M-Mode DIMENSIONS RVDd2.05 (2.1-3.2cm)Left Atrium (MM)3.60 (2.5-4.0cm) IVSd1.15 (0.7-1.1cm)Aortic Root3.44 (2.2-3.7cm) LVDd5.41 (4.0-5.6cm)Aortic Cusp Exc.2.44 (1.5-2.0cm) PWd0.97 (0.7-1.1cm)FS (%) 49 % LVDs2.74 (2.0-3.8cm) Mitral Valve MV E Zfyqxrev517.7cm/sMV A Rnhndnhe54.0cm/sE/A ratio1.7 TDI E/Lateral E'0.0E/Medial E'0.0 Tricuspid Valve TR Peak [id number]/sTR Peak Gr.[id number] LEFT VENTRICLE The left ventricle is normal size. There is normal left ventricular wall thickness. Left ventricle systolic function is normal. The Ejection Fraction is 65-70%. There is normal LV segmental wall motion. The left ventricular diastolic function is normal. RIGHT VENTRICLE The right ventricle is normal size. There is normal right ventricular wall thickness. The right ventricular systolic function is normal. ATRIA The left atrium size is normal. The right atrium size is normal. The interatrial septum is intact with no evidence for an atrial septal defect. AORTIC VALVE The aortic valve is normal in structure. No aortic regurgitation is present. There is no aortic valvular stenosis. There is no aortic valvular vegetation. MITRAL VALVE The mitral valve is normal in structure. There is no evidence of mitral valve prolapse. There is no mitral valve stenosis. There is no mitral valve regurgitation noted. TRICUSPID VALVE The tricuspid valve is normal in structure. There is mild tricuspid regurgitation. Right ventricular systolic pressure is estimated at 30-40 mmHg. There is mild pulmonary hypertension. PULMONIC VALVE The pulmonic valve is not well visualized. There is no pulmonic valvular regurgitation. GREAT VESSELS The aortic root is normal in size. PERICARDIAL EFFUSION There is no significant pericardial effusion. <Conclusion> Left ventricle systolic function is normal. The Ejection Fraction is 65-70%. No aortic regurgitation is present. There is no mitral valve regurgitation noted. There is mild tricuspid regurgitation. There is mild pulmonary hypertension. There is no pulmonic valvular regurgitation.
== END 2017-07-23 17:15 | disposition home or self-care (01) | DRG 744 ==
LOC: SUPCPDRO 04:12 → C.ER 04:12 → C.9E 09:13 → C.6T 17:13
PROVIDERS: ADMIT Hospitalist; ATTEND Hospitalist
DX: F11.220 Opioid dependence with intoxication, uncomplicated (principal); J69.0 Pneumonitis due to inhalation of food and vomit; R41.82 Altered mental status, unspecified; F12.90 Cannabis use, unspecified, uncomplicated; F19.10 Other psychoactive substance abuse, uncomplicated; F17.210 Nicotine dependence, cigarettes, uncomplicated; G89.29 Other chronic pain; I10 Essential (primary) hypertension; Z86.61 Personal history of infections of the central nervous system; Z79.899 Other long term (current) drug therapy